=== PATIENT | male | born 1990 | race African-American/Black ===

== ENCOUNTER 2017-09-21 20:53 | Emergency (ER) | payer OTHER ==
[~2017-09-21] VITALS: Ht 180.3 cm; Wt 79.7 kg
[~2017-09-21 20:53] MED LIST: BACTRIM,SEPT1 TABLET PO; KEFLEX500 MG PO; MOBIC15 MG PO; MOTRIN800 MG PO; NAPROSYN500 MG PO; NAPROXEN500 MG PO; NEXIUM20 MG PO; NORCO 5/3251 TABLET PO; PEN-VEE K,VEET500 MG PO; PERCOCET 5/31 TABLET PO; SILVADENE20 GM TP; TRAMADOL HCL50 MG PO
[2017-09-21 22:18] VITALS: BP 123/74
== END 2017-09-21 22:23 | disposition home or self-care (01) ==
LOC: EME 20:53
DX: B34.9 Viral infection, unspecified (principal); J02.9 Acute pharyngitis, unspecified; K21.9 Gastro-esophageal reflux disease without esophagitis; F17.200 Nicotine dependence, unspecified, uncomplicated; Z86.14 Personal history of Methicillin resistant Staphylococcus aureus infection
CPT/HCPCS: 70360; 87651 90; 99281; 99283

== ENCOUNTER 2017-10-30 20:51 | Emergency (ER) | payer SELFPAY ==
[~2017-10-30] VITALS: Ht 180.3 cm; Wt 78.5 kg
[2017-10-30 21:40] LABS: HEMATOCRIT 43.2 % (38.0-50.0); MCH 28.2 PG (29.0-34.0); MCHC 32.4 G/DL (30.0-36.0); MCV 86.9 FL (86-99); PLATELET COUNT 207 K/uL (156-360); RBC DIS.WIDTH-CV 14.2 % (11.8-14.6); RBC DIS.WIDTH-SD 45.6 % (39-53); RED BLOOD COUNT 4.97 M/uL (4.00-5.50); WHITE BLOOD COUNT 7.8 K/uL (4.1-10.2)
[2017-10-30 21:53] LABS: ALBUMIN 3.3 g/dL (3.2-4.8)
[2017-10-30 21:54] LABS: CHLORIDE 110 mEq/L (99-109); POTASSIUM 3.9 mEq/L (3.7-5.4); SODIUM 142 mEq/L (136-147)
[2017-10-30 21:56] LABS: GLUCOSE 126 mg/dL (70-99); TOTAL PROTEIN 5.3 g/dL (6.4-8.3)
[2017-10-30 21:58] LABS: TOTAL BILIRUBIN 0.2 mg/dL (0.0-1.0)
[2017-10-30 21:59] LABS: ALKALINE PHOSPHATASE 69 IU/L (3-129); CREATININE 1.1 mg/dL (0.6-1.3); GFR ESTIMATE (CALCULATED) > 59 mL/min/ (58.99-99999)
[2017-10-30 22:01] LABS: AST (GOT) 12 IU/L (2-34); UREA NITROGEN (BUN) 6 mg/dL (9-23)
[2017-10-30 22:02] LABS: ALT (GPT) 10 IU/L (3-49)
[2017-10-30 22:28] VITALS: BP 101/70
== END 2017-10-30 22:28 | disposition home or self-care (01) ==
LOC: EME 20:51
PROVIDERS: Nurse Practitioner Family
DX: R42 Dizziness and giddiness (principal); R55 Syncope and collapse; Z86.14 Personal history of Methicillin resistant Staphylococcus aureus infection; F17.200 Nicotine dependence, unspecified, uncomplicated
CPT/HCPCS: 80053; 85027

== ENCOUNTER 2017-12-11 02:09 | Emergency (ER) | payer SELFPAY ==
[~2017-12-11] VITALS: Ht 180.3 cm; Wt 74.6 kg
[2017-12-11 02:55] LABS: HEMATOCRIT 41.6 % (38.0-50.0); HEMOGLOBIN 13.9 G/DL (12.5-16.6); MCH 28.3 PG (29.0-34.0); MCHC 33.4 G/DL (30.0-36.0); MCV 84.7 FL (86-99); PLATELET COUNT 255 K/uL (156-360); RBC DIS.WIDTH-CV 13.2 % (11.8-14.6); RBC DIS.WIDTH-SD 40.8 % (39-53); RED BLOOD COUNT 4.91 M/uL (4.00-5.50); WHITE BLOOD COUNT 8.2 K/uL (4.1-10.2)
[2017-12-11 03:08] LABS: ALBUMIN 3.5 g/dL (3.2-4.8)
[2017-12-11 03:11] LABS: GLUCOSE 92 mg/dL (70-99); TOTAL PROTEIN 6.4 g/dL (6.4-8.3)
[2017-12-11 03:13] LABS: PTT 25.7 SEC (25-37); TOTAL BILIRUBIN 0.4 mg/dL (0.0-1.0)
[2017-12-11 03:14] LABS: ALKALINE PHOSPHATASE 81 IU/L (3-129)
[2017-12-11 03:15] LABS: CREATININE 1.1 mg/dL (0.6-1.3); GFR ESTIMATE (CALCULATED) > 59 mL/min/ (58.99-99999)
[2017-12-11 03:16] LABS: AST (GOT) 15 IU/L (2-34); UREA NITROGEN (BUN) 8 mg/dL (9-23)
[2017-12-11 03:17] LABS: ALT (GPT) 9 IU/L (3-49)
[2017-12-11] MEDS ORDERED: PEPCID20 MG PO (04:39)
[2017-12-11] MEDS ORDERED: BENTYL20 MG PO (04:48)
[2017-12-11 04:59] LABS: LIPASE 31 U/L (1.0-51.0)
[2017-12-11 05:39] VITALS: BP 113/73
[2017-12-11 06:48] LABS: CHLORIDE 104 MEQ/L (99-109); POTASSIUM 3.7 MEQ/L (3.7-5.4); SODIUM 138 MEQ/L (136-147)
== END 2017-12-11 05:39 | disposition home or self-care (01) ==
LOC: EME → EDBD 02:09 → EME 05:39
PROVIDERS: Emergency Medicine
DX: R10.84 Generalized abdominal pain (principal); K92.2 Gastrointestinal hemorrhage, unspecified; K21.9 Gastro-esophageal reflux disease without esophagitis; Z86.14 Personal history of Methicillin resistant Staphylococcus aureus infection; F17.200 Nicotine dependence, unspecified, uncomplicated
CPT/HCPCS: 74177; 80053; 81003; 83690; 85027; 85610; 85730; 86850; 86900; 86901; 93005; 99281; 99285; J7030; S0028